=== PATIENT | male | born 1995 | race Two or more races ===

== ENCOUNTER 2022-08-16 18:44 | Emergency (ER) | payer BC ==
[2022-08-16] MEDS ORDERED: Ketorolac 30 MG/ML SDV IM ONE (18:59)
[2022-08-16 19:37] LABS: RESPIRATORY SYNCYTIAL VIR NAA NEGATIVE (NEGATIVE)
[2022-08-16 19:45] LABS: CORONAVIRUS COVID-19 NAA POSITIVE (NEGATIVE)
== END 2022-08-16 20:19 | disposition home or self-care (01) ==
LOC: LL.ED 18:44
DX: U07.1 COVID-19 (principal)
CPT/HCPCS: 0241U; 71045; 87081; 87430; 96372; 99283

== ENCOUNTER 2024-04-05 14:15 | Emergency (ER) | payer OTHER, BC ==
[2024-04-05] MEDS ORDERED: Bacitracin/Neomycin/Polymyxin B Oint 0.9 GM U/D Packet TOP ONE (15:38)
== END 2024-04-05 16:50 | disposition home or self-care (01) ==
LOC: LL.ED 14:15
DX: S67.02XA Crushing injury of left thumb, initial encounter (principal); S61.012A Laceration without foreign body of left thumb without damage to nail, initial encounter; W23.0XXA Caught, crushed, jammed, or pinched between moving objects, initial encounter
CPT/HCPCS: 73140-FA; 99283